=== PATIENT | male | born 1975 | race Caucasian/White ===

== ENCOUNTER 2022-01-21 06:52 | Observation (INO) | payer BC ==
[2022-01-21] MEDS ORDERED: Sodium Chloride 0.9% 1,000 ML IV SCH (07:45)
[2022-01-21] MEDS ORDERED: HYDROmorphone 0.5 MG/0.5 ML Syringe IVPUSH ONE (07:45)
[2022-01-21 08:22] LABS: ESTIMATED GFR 107 mL/min (>60)
[2022-01-21] MEDS ORDERED: HYDROmorphone 1 MG/ML Syringe IVPUSH ONE (09:19)
[2022-01-21] MEDS ORDERED: Gadoteridol 279.3 MG/ML 20 ML SDV IV SCH (10:30)
[2022-01-21] MEDS ORDERED: Ketorolac 30 MG/ML SDV IVPUSH ONE (10:55)
[2022-01-21] MEDS ORDERED: Acetaminophen/oxyCODONE 325-5 MG Tab PO ONE ×2 (10:55→13:16)
[2022-01-21] MEDS ORDERED: Cyclobenzaprine 10 MG Tab PO ONE (11:39)
[2022-01-21] MEDS ORDERED: methylPREDNISolone Sodium Succinate 125 MG/2 ML SDV IVPUSH ONE (12:09)
[2022-01-21] MEDS ORDERED: Sodium Chloride 0.9% 10 ML Syringe FLUSH PRN (15:11)
[2022-01-21] MEDS ORDERED: Ondansetron 4 MG/2 ML SDV IV PRN (15:11)
[2022-01-21] MEDS ORDERED: Glucose Gel 15 GM in 37.5 GM Tube PO PRN (15:11)
[2022-01-21] MEDS ORDERED: Acetaminophen 325 MG Tab PO PRN (15:11)
[2022-01-21] MEDS ORDERED: 50% Dextrose in Water 50 ML Syringe IV PRN (15:11)
[2022-01-21] MEDS ORDERED: Enoxaparin 40 MG/0.4 ML Syringe SUBCUT SCH (16:00)
[2022-01-21] MEDS: Dexamethasone 4 MG/ML SDV IVPUSH SCH ×2 (16:54→21:03)
[2022-01-21] MEDS: Ibuprofen 600 MG Tab PO SCH ×2 (16:54→21:02)
[2022-01-21] MEDS: metFORMIN 500 MG Tab PO SCH (16:54)
[2022-01-21] MEDS: HYDROmorphone 0.5 MG/0.5 ML Syringe IVPUSH PRN ×2 (16:55→20:54)
[2022-01-21] MEDS: Insulin Lispro 100 Unit/ML 3 ML KwikPen SUBCUT SCH ×2 (17:05→21:16)
[2022-01-21] MEDS ORDERED: atorvaSTATin 10 MG Tab PO SCH (21:00)
[2022-01-21] MEDS: Carvedilol 3.125 MG Tab PO SCH (21:00)
[2022-01-22] MEDS: Ibuprofen 600 MG Tab PO SCH ×2 (03:44→12:39)
[2022-01-22] MEDS: Dexamethasone 4 MG/ML SDV IVPUSH SCH ×2 (03:44→12:39)
[2022-01-22] MEDS ORDERED: Empagliflozin 10 MG Tab PO SCH (07:30)
[2022-01-22] MEDS: metFORMIN 500 MG Tab PO SCH (08:18)
[2022-01-22] MEDS: Carvedilol 3.125 MG Tab PO SCH (08:19)
[2022-01-22] MEDS: Insulin Lispro 100 Unit/ML 3 ML KwikPen SUBCUT SCH (08:20)
[2022-01-22] MEDS ORDERED: Lisinopril 2.5 MG Tab PO SCH (09:00)
[2022-01-22] MEDS ORDERED: Isosorbide Mononitrate 30 MG Tab.ER PO SCH (09:00)
== END 2022-01-22 11:45 | disposition home or self-care (01) ==
LOC: JP.ED 06:52 → JP.MS 14:12
PROVIDERS: ADMIT Hospitalist; ATTEND Hospitalist
DX: M54.50 Low back pain, unspecified (principal); M62.830 Muscle spasm of back; M51.86 Other intervertebral disc disorders, lumbar region; I10 Essential (primary) hypertension; E11.9 Type 2 diabetes mellitus without complications; E78.00 Pure hypercholesterolemia, unspecified; Z79.84 Long term (current) use of oral hypoglycemic drugs; Z79.899 Other long term (current) drug therapy; Z20.822 Contact with and (suspected) exposure to COVID-19; Z88.0 Allergy status to penicillin; Z98.890 Other specified postprocedural states
CPT/HCPCS: 36415; 72158; 80053; 81001; 82550; 82947; 85025; 87635; 97110; 97116; 97161; A9270; A9579; J1100; J1170; J1650; J1815; J1885; J2930; J7030; U0002